=== PATIENT | female | born 1965 | race Caucasian/White ===

== ENCOUNTER 2020-06-19 11:50 | Day surgery (SDC) | payer BC ==
[~2020-06-19] VITALS: Ht 172.7 cm; Wt 86.8 kg
[2020-06-19] MEDS ORDERED: ONDA8TAB8 PO (12:08)
[2020-06-19] MEDS ORDERED: VITAD400CA FT (12:08)
[2020-06-19] MEDS ORDERED: MULTCAP PO (12:08)
[2020-06-19] MEDS ORDERED: ZYRTTAB8 PO (12:08)
[2020-06-19] MEDS ORDERED: AZO-95TA3 PO (12:08)
[2020-06-19] MEDS ORDERED: CONRAY-60 60% 50ML VIAL (Q9961) As Ordered ONE (13:00)
--- NOTE | 2020-06-19 13:36 | HPEPDOC ---
[facility] Medical History & Physical Date of Admission Jun 19, 2020 Date of Service: Jun 19, 2020 Attending Physician: SAMAN WILSON MD History and Physical CHIEF COMPLAINT: Left flank and abdominal pain HISTORY OF PRESENT ILLNESS: this is a 55 y.o.wf who has had periodic abdominal and flank and back pain off and on over the last year. These episodes were diagnosed as UTI's and treated with AZO and occasional antibiotics. 2 days ago she had another episode of pain start and this time Axo did nothing so she went to the ER. A CT was performed and showed a 1cm stone at the UVJ with severe left hydronephrosis. She was therefore sent to [facility] for stent insertion. PAST MEDICAL HISTORY: 1. No past history of stones 2. . 3. . PAST SURGICAL HISTORY: 1. None 2. . 3. . SOCIAL HISTORY: Marital status: Resides in: Children: 4 Employment: SOCIAL SERVICE LIAISON at [employer] Tobacco use:none ETOH: None Illicit drug use: None Tattoos done unprofessionally: . IV drug use: None Other relevant social factors: FAMILY HISTORY: Father: Renal calculi and other medical issues related to [place] Mother: of Leukemia Siblings: Children: Hereditary Diseases: Unexpected deaths due to medical reasons: ALLERGIES: NKA. REVIEW OF SYSTEMS: CONSTITUTIONAL: WNL HEENT: WNL CARDIOVASCULAR: WNL RESPIRATORY: WNL GASTROINTESTINAL: WNL GENITOURINARY: . SKIN: WNL MUSCULOSKELETAL: WNL NEUROLOGICAL: WNL PSYCHIATRIC: WNL ENDOCRINE: WNL HEMATOLOGIC/LYMPHATIC: WNL HOME MEDICATIONS: NONE PHYSICAL EXAMINATION: VITAL SIGNS: Temperature , pulse , respiratory rate , blood pressure , pulse oximetry % on room air. GENERAL APPEARANCE: Alert, oriented and NAD HEENT: LORAINE CARDIOVASCULAR: regular rhythm LUNGS: Clear ABDOMEN: Benign MUSCULOSKELETAL: WNL EXTREMITIES: WNL NEUROLOGICAL: WNL PSYCHIATRIC: WNL LABORATORY DATA: See below. IMAGING: Review of CT confirms a 1cm stone in the distal left ureter with severe hydronephrosis MICROBIOLOGY: Please see below. ASSESSMENT: Obstructing left ureteral stone . PLAN: 1. Patient will be taken to the OR for a stent insertion and possible ureteroscopic laser lithotripsy. Possible complications of infection, bleeding, perforation, strictures and pain were discussed. I also discussed that the stone may not be able to be retrieved and may need a second procedure. She acknowledged understanding and consented. Vital Signs Vital Signs Date Time Temp Pulse Resp B/P (MAP) Pulse Ox O2 Delivery O2 Flow Rate FiO2 06/19/20 12:03 97.6 81 17 133/62 (85) 99 Room Air Laboratory Data Labs 24H Laboratory Tests 2 06/19/20 12:14: Coronavirus (COVID-19)(PCR) NEGATIVE Home Medications Scheduled Cetirizine HCl/Pseudoephedrine (Zyrtec-D Tablet) 1 Each Tab.er.12h, 1 TAB PO DAILY Multivitamin (Multivitamins) 1 Each Capsule, 1 CAP PO DAILY Ondansetron (Ondansetron Odt) 8 Mg Tab.rapdis, 8 MG PO Q6H for nausea/vomiting Phenazopyridine HCl (Azo Urinary Pain Relief) 95 Mg Tablet, 2 TAB PO TID Vitamin D (Vitamin D3) 10 Mcg Tablet, 1,000 MCG FT DAILY Allergies Coded Allergies: No Known Allergies (Unverified , 06/19/20) A-FIB/CHADSVASC A-FIB History Current/History of A-Fib/PAF?: No Current PO Anticoag Therapy: No Age/Risk Factor Scoring CHADSVASC: CHADSVASC Response (Comments) Value Age Risk Factor Age < 65 years old 0 Gender Risk Factor Female 1 Hx of CHF No 0 Hx of HTN No 0 Hx of Stroke/TIA/or VTE No 0 Hx of Diabetes No 0 Hx of Vascular Disease No 0 Total 1 Treatment Treatment ordered: NONE SAMAN WILSON MD Jun 19, 2020 13:36
[2020-06-19] MEDS ORDERED: LIDOCAINE 2% 100MG/5ML SDV (FOR ANES.) As Ordered ONE (13:38)
[2020-06-19] MEDS ORDERED: propofoL 200 MG/20 ML VIAL As Ordered ONE (13:38)
[2020-06-19] MEDS ORDERED: MIDAZOLAM INJ 2MG/2ML VIAL (J2250 PER 1MG) As Ordered ONE (13:39)
[2020-06-19] MEDS ORDERED: fentaNYL 100 MCG/2 ML INJECTION (J3010) As Ordered ONE (13:39)
[2020-06-19] MEDS ORDERED: ONDANSETRON 4MG/2ML VIAL As Ordered ONE (14:21)
[2020-06-19] MEDS ORDERED: ceFAZolin 2 GM/D5W 50 ML IV BAG (J0690 PER 500MG) As Ordered ONE (14:22)
[2020-06-19] MEDS ORDERED: dexameTHASONE 4 MG/ML 1ML VIAL (J1100 PER 1MG) As Ordered ONE (14:22)
[2020-06-19] MEDS ORDERED: PHENYLephrine HCL 500 MCG/5 ML (100MCG/ML) SYRINGE (J2370) As Ordered ONE (14:26)
[2020-06-19] MEDS ORDERED: ePHEDrine SULFATE 25 MG/5 ML(5MG/ML) SYRINGE As Ordered ONE (14:27)
[2020-06-19] MEDS ORDERED: KETOROLAC 60MG 2ML VIAL As Ordered ONE (14:31)
[2020-06-19] MEDS ORDERED: IBUPROFEN 600MG TAB PO PRN (16:00)
[2020-06-19] MEDS ORDERED: METOCLOPRAMIDE INJ 10MG/2ML VIAL (J2765 PER 1) IV PRN (16:00)
[2020-06-19] MEDS ORDERED: KETOROLAC 30 MG/ML 1ML VIAL IV PRN (16:00)
[2020-06-19] MEDS ORDERED: PERCOCET 5MG/325MG TAB PO PRN (16:00)
[2020-06-19] MEDS ORDERED: NORCO, ANEXSIA 5/325MG TABLET (HYDROcodone/ACETAMINOPHEN) PO PRN (16:00)
[2020-06-19] MEDS ORDERED: LR 1,000 ML IV SCH (16:00)
[2020-06-19] MEDS ORDERED: fentaNYL 100 MCG/2 ML INJECTION (J3010) IV PRN (16:00)
[2020-06-19] MEDS ORDERED: ONDANSETRON 4MG/2ML VIAL IV PRN (16:00)
[2020-06-19 16:25] VITALS: BP 119/76
[2020-06-19 16:55] VITALS: BP 117/74
[2020-06-19 17:25] VITALS: BP 118/72
[2020-06-19 18:25] VITALS: BP 118/71
--- NOTE | 2020-07-05 12:16 | RO ---
DATE OF OPERATION: 06/19/2020 PREOPERATIVE DIAGNOSIS: Distal left ureteral calculus. POSTOPERATIVE DIAGNOSIS: Distal left ureteral calculus. PROCEDURE: Cystoscopy with left retrograde pyelogram, ureteroscopic laser lithotripsy, stent insertion and x-ray interpretation. SURGEON: Andres Gastelum MD ANESTHESIA: General. INDICATION FOR OPERATION: This is a 55-year-old, white female who presented to an outside hospital with left flank pain and found to have a 1 cm distal left UVJ calculus. She was transferred to [facility]. Because of the severe hydronephrosis and size of the stone, the patient was brought to the operating room for stent insertion and treatment. DESCRIPTION OF OPERATION: The patient was anesthetized with general anesthesia, placed in the lithotomy position, prepped with Betadine paint, and draped in an aseptic manner. Timeout was then performed. A 22-Panamanian cystoscope was then inserted into the meatus and advanced to the bladder under direct vision of a 30-degree lens. The bladder was seen to be normal. The left ureteral orifice was small and was catheterized with a Pollack catheter. Retrograde injection of Conray showed severe left hydroureteronephrosis and a large distal calculus. A wire guide was then left in place. A semi-rigid ureteroscope was then advanced along side the safety wire up to the stone. Because of the size of the stone, it was broken up into fragments with a laser lithotripter. A 2.57 fiber was used. The larger fragments were then retrieved with a basket. The ureteroscope was then exchanged for the cystoscope, which was backloaded over the safety wire and a 6-Panamanian double-J stent was advanced over the wire up to the renal pelvis where it curled well. The bladder end also curled well when the wire was removed. Stone fragments were removed and the bladder was drained, cystoscope was removed and the patient was awakened and sent to the recovery room in stable condition having tolerated the procedure well. Throughout the case, fluoroscopy was used to determine progress of the stone fragmentation, stone position, hydroureteronephrosis and stent placement. COMPLICATIONS: None. BLOOD LOSS: 5 mL. A 6-Panamanian double-J stent was left in place. [facility]
--- NOTE | 2020-07-07 13:12 | REP ---
RETROGRADE PYELOGRAM STUDY: CLINICAL: Left stent placement. TECHNIQUE: Intraoperative fluoroscopic imaging using portable C-arm technique. FINDINGS: Two images demonstrate left-sided hydroureter and subsequent ureteral stent placement. Total fluoroscopic time: 27 seconds. IMPRESSION: Status post left ureteral stent placement. MTDD
[2020-07-07 17:08] LABS: CA Oxalate Dihy 20 % (.); Ca Ox Monohydrate 80 % (.); Size 2x5 mm (.)
== END 2020-06-19 19:45 | disposition home or self-care (01) ==
LOC: M ED 11:50 → M SDC 13:14 → M MSPAV 16:45 → M SDC 19:45
PROVIDERS: ATTEND Urology
DX: N20.1 Calculus of ureter (principal); F17.218 Nicotine dependence, cigarettes, with other nicotine-induced disorders; Z79.899 Other long term (current) drug therapy
CPT/HCPCS: 52356; 74420; 82365; 87086; 88300; 99284; C1769; C2617; J0690; J1100; J1885; J2250; J2370; J2405; J3010; Q9961; U0002